=== PATIENT | male | born 1955 | race Caucasian/White ===

== ENCOUNTER 2017-03-19 11:16 | Day surgery (SDC) | payer BC ==
--- NOTE | 2017-03-11 04:04 | HP ---
HISTORY AND PHYSICAL: DATE OF ADMISSION: 03/19/17 [facility] CHIEF COMPLAINT: Triggering and locking in the left thumb. HISTORY OF PRESENT ILLNESS: Gregory Evans is a 61-year-old man who has clicking and locking of his left thumb since this past spring. I saw him in October and he was given a cortisone shot. He got good relief from the injection, but in the last few weeks, the symptoms have come back again. He is diabetic. His control is actually pretty good. He has never had a trigger finger in the past. He has no history of numbness. PAST MEDICAL HISTORY: Significant for hypercholesterolemia, hypertension, type 2 diabetes, diverticulitis. PAST SURGICAL HISTORY: None. MEDICATIONS: 1. Ibuprofen 200 mg p.o. p.r.n. 2. Losartan potassium/hydrochlorothiazide 100/25 mg p.o. daily. 3. Metformin/HCl ER 750 mg p.o. daily. 4. Simvastatin 40 mg p.o. q.h.s. FAMILY HISTORY: Cancer. 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 He lives with his spouse. He denies tobacco and alcohol use. REVIEW OF SYSTEMS: Positive for seasonal allergies. Otherwise, negative for cephalic, cardiovascular, respiratory, gastrointestinal, genitourinary, other musculoskeletal, skin, neurologic, endocrine, and hematologic symptoms. PHYSICAL EXAMINATION GENERAL: He is a healthy-appearing, very pleasant man in minimal distress at rest. HEENT: Exam is unremarkable. He has good range of motion of his neck without pain. LUNGS: Clear to auscultation. Good inspiratory effort. No wheezing. CARDIAC: Regular rate and rhythm without murmur. PERIPHERAL VASCULAR: He has palpable pulses and no peripheral edema. EXTREMITIES: He has tenderness at the A1 jeremias of his left thumb. When he flexes his thumb, it locks. He does have good extension, but lacks some extension due to the tendonitis. His skin is intact. His neurovascular function is intact. NEUROLOGIC: He is alert, oriented without focal deficits. IMPRESSION: Left trigger thumb. PLAN: Left trigger thumb release. The surgical procedure, risks, and benefits were explained to the patient today and he wishes to proceed. I will see him back in my office for followup about 9 or 10 days postop. [id number]/[facility] #: [id number] [facility] HOSPITALLuiza
[~2017-03-19 11:16] MED LIST: Buffered Lidocaine 0.9% SYRIN* 5 ML/SYR SYRINGE INTRADERM ONE; DiMENhydriNATE IV* 50 MG/ML VIAL IV PUSH PRN; Famotidine IV* 10 MG/ML 2 ML (20 mg) IV ONE; PROCHLORPERAZINE INJ 5 MG/ML 2 ML VIAL IV PRN; fentaNYL* 50 MCG/ML 2 ML VIAL (100 MCG VIAL) IV PRN; oxyCODONE/Acetamin 5/325 MG* TAB PO PRN
[2017-03-19] MEDS ORDERED: Famotidine IV* 10 MG/ML 2 ML (20 mg) ONE (11:20)
[2017-03-19] MEDS ORDERED: fentaNYL* 50 MCG/ML 2 ML VIAL (100 MCG VIAL) ONE (12:35)
[2017-03-19] MEDS ORDERED: Midazolam* 1 MG/ML 5 ML VIAL (5 MG) ONE (12:35)
[2017-03-19] MEDS ORDERED: KETAMINE HCL* 50 MG/ML 10 ML VIAL ONE (12:35)
[2017-03-19] MEDS ORDERED: Lidocaine 1% INJ* 10 MG/ML 30 ML SDV ONE (12:48)
[2017-03-19 13:25] VITALS: BP 110/67
--- NOTE | 2017-03-20 09:17 | OP ---
DATE OF OPERATION: 03/19/17 [facility] DATE OF : 53 SURGEON: Lisseth Dawkins MD. CYLINDER CHECKER: CLEMENCIA Armas. ANESTHESIOLOGIST: Gregory Taylor MD ANESTHESIA: Local, MAC. PRE-OP DIAGNOSIS: Left trigger thumb. POST-OP DIAGNOSIS: Left trigger thumb. OPERATIVE PROCEDURE: Left trigger thumb release. ESTIMATED BLOOD LOSS: Zero. TOURNIQUET TIME: 5 minutes. INDICATION FOR PROCEDURE: Gregory is a 61-year-old man with painful locking of his left thumb. He presents for trigger thumb release. DESCRIPTION OF PROCEDURE: The patient was brought to the operating room, was given a sedation anesthetic and a local infiltration of 10 cc of 1% plain lidocaine overlying the A1 jeremias of his left thumb. The skin of his left hand and forearm was prepped and draped in the usual sterile fashion. The hand and forearm were exsanguinated and tourniquet elevated to 250 mmHg. A transverse incision was made, centered over the A1 jeremias of the left thumb. We dissected bluntly through the subcutaneous tissue. The digital neurovascular bundles were retracted. The A1 jeremias was incised longitudinally, completely releasing the FPL tendon, which was in good condition. The wound was irrigated and the skin edges were reapproximated with 4-0 nylon suture. The wound was dressed with Xeroform, 4x4, Webril, and an Luis Alfredo wrap. The patient tolerated the procedure well and was brought to the recovery room in good condition. [id number]/[facility] #: [id number] MTDD
== END 2017-03-19 13:45 | disposition home or self-care (01) ==
LOC: OREAST 11:16
PROVIDERS: ATTEND Orthopaedic Surgery
DX: M65.312 Trigger thumb, left thumb (principal); E78.00 Pure hypercholesterolemia, unspecified; I10 Essential (primary) hypertension; E11.8 Type 2 diabetes mellitus with unspecified complications; Z79.84 Long term (current) use of oral hypoglycemic drugs; K57.92 Diverticulitis of intestine, part unspecified, without perforation or abscess without bleeding
CPT/HCPCS: J2001; J2250; J3010